=== PATIENT | male | born 1970 ===

== ENCOUNTER 2017-03-27 08:49 | Emergency (ER) | payer OTHER ==
[2017-03-27 09:18] VITALS: BP 142/82; PULSE 81; RESP 20; TEMP 97.2; O2SAT 100
[2017-03-27] MEDS ORDERED: Amoxicillin-Clav 875-125 mg Tab PO STA (09:55)
--- NOTE | 2017-03-27 10:07 | ED PDOC ---
HPI: Skin/Bite Injury <Becca Adams - Last Filed: 03/27/17 10:12> <Jerry Raphael - Last Filed: 03/27/17 11:35> Time Seen by Provider: 03/27/17 09:29 Chief Complaint (Nursing): Wound Check Additional Complaint(s): 47M p/w "rat bite" from approximately 4am this morning while sleeping on the couch. It was cleaned afterwards with alcohol, vinegar, and hand construction services technician. This is the first time this has happened but there is a known rat infestation in the home. He denies fevers, chills, SOB, chest pain, headaches, or dizziness. PMH: None PSH: None ALL: NKDA Smoker: No Alcohol: 5-6 beers/week Drugs: Denies (Becca Adams) Supervising Attending Note <Becca Adams - Last Filed: 03/27/17 10:12> - Supervising Attending Note The Documented history was done by the: Physician Branch Examiner The documented physical exam was done by the: Physician Branch Examiner The documented procedures were done by the: Physician Branch Examiner - Attestation: I have personally seen and examined this patient.: Yes I have fully participated in the care of the patient.: Yes I have reviewed all pertinent clinical information, including history, physical exam and plan: Yes <Jerry Raphael - Last Filed: 03/27/17 11:35> - Notes: Notes:: 47 y/o M with a rate bite to forehead wound cleaned here, given augmentin, close f/u in med cl[facility] RTER if worse, (Jerry Raphael) Past Medical History - Family History Family History: States: No Known Family Hx <Becca Adams - Last Filed: 03/27/17 10:12> <Jerry Raphael - Last Filed: 03/27/17 11:35> Vital Signs: Last Vital Signs Temp 97.2 F L 03/27/17 09:17 Pulse 81 03/27/17 09:17 Resp 20 03/27/17 09:17 BP 142/82 03/27/17 09:17 Pulse Ox 100 03/27/17 10:12 - Home Medications Home Medications: Ambulatory Orders Medication Instructions Recorded Amoxicillin/Clavulanate [Augmentin 1 tab PO BID #14 tab 03/27/17 875 MG-125 MG] - Allergies Allergies/Adverse Reactions: Allergies Allergy/AdvReac Type Severity Reaction Status Date / Time No Known Allergies Allergy Verified 03/27/17 09:28 Review of Systems ROS Statement: Except As Marked, All Systems Reviewed And Found Negative ENT: Positive for: Other (Two areas of broken skin at mid forehead) <Becca Adams - Last Filed: 03/27/17 10:12> Physical Exam - Reviewed Vital Signs Reviewed: Yes - Physical Exam Appears: Positive for: Well, Non-toxic, No Acute Distress Head Exam: Positive for: ATRAUMATIC, NORMAL INSPECTION Skin: Positive for: Normal Color, Warm, Dry Eye Exam: Positive for: Normal appearance, EOMI ENT: Positive for: Other (Mid forehead with two small areas with superficial broken skin, non-erythematous, no drainage ) Neck: Positive for: Supple Cardiovascular/Chest: Positive for: Regular Rate, Rhythm Respiratory: Positive for: Normal Breath Sounds <Becca Adams - Last Filed: 03/27/17 10:12> - ECG O2 Sat by Pulse Oximetry: 100 <Becca Adams - Last Filed: 03/27/17 10:12> Medical Decision Making <Becca Adams - Last Filed: 03/27/17 10:12> <Jerry Raphael - Last Filed: 03/27/17 11:35> Medical Decision MakinM with rat bite concerns are for rat fever/Bartonella, staph/strep infections. - Cleansed site - Home w/abx (Becca Adams) Disposition - Patient ED Disposition Is Patient to be Admitted: No Counseled Patient/Family Regarding: Studies Performed, Diagnosis, Need For Followup, Rx Given - Disposition Disposition: Routine/Home Disposition Time: 10:10 <Becca Adams - Last Filed: 03/27/17 10:12> <Jerry Raphael - Last Filed: 03/27/17 11:35> - Clinical Impression Clinical Impression: Rat bite - Disposition Referrals: [facility] [Outside] (within 1 week) Condition: GOOD Prescriptions: Amoxicillin/Clavulanate [Augmentin 875 MG-125 MG] 1 tab PO BID #14 tab Instructions: Animal Bite (ED) Forms: [employer] (Angolan) Print Language: ANGUILLAN
[2017-03-27] MEDS ORDERED: Amoxicillin-Clav 875-125 mg Tab PO ONE (10:23)
== END 2017-03-27 10:44 | disposition home or self-care (01) ==
LOC: H.ER 08:49
DX: S01.83XA Puncture wound without foreign body of other part of head, initial encounter (principal); W53.11XA Bitten by rat, initial encounter; Y92.008 Other place in unspecified non-institutional (private) residence as the place of occurrence of the external cause